=== PATIENT | female | born 1950 | race Caucasian/White ===

== ENCOUNTER 2018-11-20 23:27 | Observation (INO) ==
[2018-11-20] MEDS ORDERED: 0.9 % Sodium Chloride 1,000 ML IVC ONE (23:50)
[2018-11-20] MEDS ORDERED: methylPREDNISolone 125 MG/2 ML VIAL IVP ONE (23:50)
[2018-11-20] MEDS ORDERED: Ipratropium/Albuterol Neb 3 ML IH ONE (23:50)
[2018-11-21 00:32] LABS: Basophils % 0.4 %; Eosinophils # 0.1 K/mcL (0.0-0.6); Eosinophils % 1.4 %; Hematocrit 38.8 % (35.3-44.9); Immature Granulocytes % 0.3 % (0-4); Lymphocytes % 11.1 %; Mean Corpuscular HGB Conc 33.5 g/dL (31.6-35.5); Mean Corpuscular Hemoglobin 30.4 pg (28.0-33.3); Mean Corpuscular Volume 90.9 fL (83.0-100.0); Mean Platelet Volume 9.9 fL (9.4-12.4); Monocytes # 1.6 K/mcL (0.0-1.3); Neutrophils # 6.5 K/mcL (1.6-8.9); Platelet Count 248 K/mcL (140-400); Red Blood Count 4.27 M/mcL (3.82-4.97); Red Cell Distribution Width 11.3 % (11.5-14.5); Segmented Neutrophils % 69.8 %
[2018-11-21] MEDS ORDERED: Levofloxacin 750 MG/150 ML 750 MG/150 ML BAG IVPB ONE (00:37)
--- NOTE | 2018-11-21 00:40 | Emergency Department Note ---
Disposition Clinical Impression: Bronchitis, COPD exacerbation, Dyspnea Disposition: Admitted As Inpatient Condition: Good Referrals: Kayli Miller NEEDLE STRAIGHTENER [Primary Care Provider] - Forms: ED Satisfaction Letter Time of Disposition: 00:43 SOB HPI - General Chief Complaint: ED Upper Respiratory Infection Stated Complaint: Sinus drainage 10 days ago, dyspnea 3 days Time Seen by Provider: 11/20/18 23:31 Source: patient, EMS Mode of arrival: EMS Limitations: no limitations Nursing Notes Reviewed: Yes Vital Signs Reviewed: Yes - History of Present Illness Pt Subjective Complaint: shortness of breath, cough Onset (ago): day(s) (Several days) Context: recent illness (Started out about 10 days ago with sinus congestion. Still having a lot of sinus congestion with postnasal drainage and mucus when blowing her nose.) Severity: severe Consistency/Duration: constant, gradually worsening Improves with: oxygen, rest Worsens with: exertion Known history of: COPD Associated symptoms: Reports: cough, sputum production. Denies: fever Treatment prior to arrival: oxygen (Home oxygen) Cough present: Yes Cough Description: Productive Cough Frequency: Intermittent - Related Data Home Medications Medication Instructions Recorded Confirmed Albuterol Neb [AccuNeb] 0.63 mg IH PRN PRN 11/04/15 11/20/18 Aspirin 81 mg PO DAILY 11/04/15 11/20/18 Budesonide/Formoterol 160/4.5 2 puff IH BIDR 11/04/15 11/20/18 [Symbicort 160/4.5] Ipratropium/Albuterol Sulfate 4 gm IH Q6H 11/04/15 11/20/18 [Combivent Respimat Inhal [place]] Allergies Allergy/AdvReac Type Severity Reaction Status Date / Time Sulfa (Sulfonamide AdvReac Vomiting Verified 11/20/18 23:41 Antibiotics) All systems ED: reviewed and negative except as stated. Constitutional: Denies: fever, chills ENT ED: Reports: throat pain, congestion, other (Significant postnasal drainage). Denies: ear pain Cardiovascular: Reports: dyspnea on exertion. Denies: chest pain, palpitations Respiratory: Reports: cough, dyspnea, wheezes Gastrointestinal: Reports: nausea (She has had some nausea with the postnasal drainage). Denies: abdominal pain, vomiting, diarrhea Musculoskeletal: Denies: back pain Integumentary: Denies: rash Neurological: Denies: headache Past Medical History - Past Medical History Attestation: Yes The following information was validated with the patient. Source: patient, old records reviewed, obtained from family, nursing notes reviewed Medical history: Reports: COPD, diabetes, hypertension Surgical history: Reports: hip replacement Psychiatric history: Reports: no psych history - Social History Smoking Status: Former smoker Smokeless Tobacco Status: No Alcohol use: Reports: none Drug use: Reports: none Physical Exam - General Limitations: no limitations General appearance: alert, in no apparent distress - Head Head exam: atraumatic, normocephalic, normal inspection - Eye Eye exam: Present: normal appearance, PERRL, EOMI. Absent: scleral icterus, conjunctival injection - ENT ENT exam: normal exam, normal oropharynx, mucous membranes moist, TM's normal bilaterally, normal external ear exam - Neck Neck exam: Present: normal inspection, full ROM, trachea midline. Absent: lymphadenopathy - Chest Chest inspection: Present: normal inspection, symmetric chest wall rise. Absent: tenderness - Respiratory Respiratory exam: Present: respiratory distress (Tachypneic), wheezes (Scattered throughout), prolonged expiratory phase - Cardiovascular Cardiovascular exam: Present: normal rhythm, tachycardia, normal heart sounds - Abdominal Exam Abdominal exam: Present: soft, Non-Tender, normal bowel sounds - Extremities Exam Extremities exam: Present: normal inspection, full ROM. Absent: pedal edema - Back Exam Back exam: Present: normal inspection. Absent: tenderness - Neurological Exam Neurological exam: Present: alert, oriented X3 - Psychiatric Psychiatric exam: Present: normal affect, normal mood - Skin Skin exam: Present: warm, dry. Absent: rash Course Course Narrative: Patient presents complaining of shortness of breath and cough and wheezing. She started out with sinus infection and postnasal drainage. That has persisted with the shortness of breath came on about 2 days ago and has been progressively worsening. She is using her home oxygen without relief. She has an aerosol machine at home but she did not use it for this illness. She does not appear toxic although she is little bit tachypneic and has the wheezing. I think is a COPD exacerbation precipitated by lung infection. We will get a chest x-ray going and get her breathing treatments and steroids. Disposition will be based on diagnostic results and reevaluation. - Reevaluation(s) Reevaluation #1: Chest x-ray was clear. Patient feels better after the breathing treatments but she still tachypneic and heart rate is 125 and she still has an oxygen need. I think is best admitted to the hospital. I will talk to the hospitalist. Time: 00:42 - Consultations Consultation #1: Dr. Arteaga, hospitalist - I discussed case with the hospitalist. He accepted the patient for admission. Time: 01:39 Vital Signs Temperature 98 F 11/20/18 23:31 Pulse Rate 110 11/20/18 23:31 Respiratory Rate 24 11/20/18 23:31 Blood Pressure 164/64 11/20/18 23:31 O2 Sat by Pulse Oximetry 92 11/20/18 23:31 Temperature 98 F 11/20/18 23:31 Pulse Rate 117 11/21/18 00:30 Respiratory Rate 22 11/21/18 00:30 Blood Pressure 148/71 11/21/18 00:30 O2 Sat by Pulse Oximetry 95 11/21/18 00:30 Oxygen Delivery Oxygen Delivery Nasal Cannula Shortness of Breath/Dyspnea - Medical Records Medical records reviewed: Yes I reviewed the patient's medical records. - Lab Data Lab results reviewed: Yes I reviewed the patient's lab results. Result diagrams: 11/21/18 00:08 11/21/18 00:08 Lab Results 11/21/18 11/21/18 11/21/18 Range/Units 00:08 00:08 00:08 WBC 9.3 (4.3-11.1) K/mcL RBC 4.27 (3.82-4.97) M/mcL Hgb 13.0 (11.5-15.4) g/dL Hct 38.8 (35.3-44.9) % MCV 90.9 (83.0-100.0) fL MCH 30.4 (28.0-33.3) pg MCHC 33.5 (31.6-35.5) g/dL RDW 11.3 L (11.5-14.5) % Plt Count 248 (140-400) K/mcL MPV 9.9 (9.4-12.4) fL Immature Gran % 0.3 (0-4) % Seg Neutrophils % 69.8 % Lymphocytes % 11.1 % Monocytes % 17.0 % Eosinophils % 1.4 % Basophils % 0.4 % Neutrophils # 6.5 (1.6-8.9) K/mcL Lymphocytes # 1.0 (0.6-4.6) K/mcL Monocytes # 1.6 H (0.0-1.3) K/mcL Eosinophils # 0.1 (0.0-0.6) K/mcL Basophils # 0.0 (0.0-0.2) K/mcL Sodium 135 L (136-145) mEq/L Potassium 3.8 (3.5-5.1) mEq/L Chloride 94 L (98-107) mEq/L Carbon Dioxide 33 H (23-29) mEq/L BUN 11 (8-23) mg/dL Creatinine 0.40 L (0.60-1.20) mg/dL Est GFR ( Amer) > 60 (> 60) Est GFR (Non-Af Amer) > 60 (> 60) BUN/Creatinine Ratio 28 H (6-26) Glucose 149 H (70-105) mg/dL Calculated Osmolality 282 (280-300) Calcium 9.4 (8.6-10.3) mg/dL Troponin I < 0.03 (< 0.04) ng/mL B-Natriuretic Peptide 27 (Less than 100) pg/mL - Radiology Data Radiology results reviewed: Yes I reviewed the patient's radiology results.
[2018-11-21 00:58] LABS: Troponin I < 0.03 ng/mL (< 0.04)
[2018-11-21 01:01] LABS: BUN/Creatinine Ratio 28 (6-26); Blood Urea Nitrogen 11 mg/dL (8-23); Calcium 9.4 mg/dL (8.6-10.3); Carbon Dioxide 33 mEq/L (23-29); Chloride 94 mEq/L (98-107); Glucose 149 mg/dL (70-105); Osmolality,Calculated 282 (280-300); Potassium 3.8 mEq/L (3.5-5.1); Sodium 135 mEq/L (136-145); eGFR For Non-African Americans > 60 (> 60)
[2018-11-21] MEDS ORDERED: Naloxone 0.4 MG/ML INJ IVP PRN (02:32)
[2018-11-21] MEDS ORDERED: Levofloxacin 500 MG/100 ML 500 MG/100 ML BAG IVPB SCH (02:32)
[2018-11-21] MEDS ORDERED: 0.9 % Sodium Chloride 1,000 ML IVC SCH (02:32)
[2018-11-21] MEDS: Ipratropium/Albuterol Neb 3 ML IH SCH ×3 (03:25→11:43)
[2018-11-21] MEDS ORDERED: MethylPREDNISolone 40 MG/ML VIAL IVP SCH (08:00)
[2018-11-21] MEDS ORDERED: Aspirin 81 MG TAB.CHEW PO SCH (09:00)
[2018-11-21] MEDS ORDERED: Budesonide/Formoterol 160/4.5 1 PUFF INH IH SCH (10:00)
--- NOTE | 2018-11-21 11:38 | Internal Med History&Physical ---
Date of Encounter: 11/21/18 Time of Encounter: 11:10 Assessment and Plan (1) COPD (chronic obstructive pulmonary disease) Current visit: No Status: Chronic She was given Levaquin and Solu-Medrol in emergency room. She feels improved at present time. Qualifiers: COPD type: unspecified COPD Qualified Code(s): J44.9 - Chronic obstructive pulmonary disease, unspecified (2) Hypertension Current visit: No Status: Chronic She reports using lisinopril 10 mg daily at home. She denies chronic cough. Qualifiers: Hypertension type: essential hypertension Qualified Code(s): I10 - Essential (primary) hypertension Internal Medicine - H&P: HPI Chief complaint: Dyspnea Admitted From: Emergency Dept Plans for Post Hospital Care: Home History of present illness: Ms. Hernandez is a 68 year old female who came to emergency room stating she had dyspnea onset approximately 10 days earlier. She had seen her PCP approximately 5 days after onset. She reports chest x-ray and testing for influenza were negative. She was given steroids which she took for 2 doses and then stopped. She also reports there is some pressure sensation in her chest and upper back. Her dyspnea did not improve so she came to emergency room. She was evaluated in emergency room and admitted to [facility] floor for ongoing care needs. She states she feels improved present time but not quite back to her baseline. Her respiratory history significant for having smoked from age [age] never exceeding 1 pack per day. She has oxygen home which she uses at nighttime and as needed during the daytime. She reports PFTs 2007 showed COPD. Cardiovascular history is significant for hypertension. She denies MT heart failure angina DVT or pulmonary embolus. Past Med Surg Social Fam HX - Past Medical History Medical history: COPD, diabetes, GERD, hypertension Psychiatric history: no psych history - Past Surgical History Surgical History: hip replacement Additional surgical history: ORIF right hip - Social History Smoking Status: Former smoker Smokeless Tobacco Status: No Alcohol use: none Drug use: none - Family History Father Hx Family Cardiac Disorders: Yes Internal Medicine - H&P: Meds Albuterol Neb [AccuNeb] 0.63 mg IH PRN PRN 11/04/15 [History] Aspirin 81 mg PO DAILY 11/04/15 [History] Budesonide/Formoterol 160/4.5 [Symbicort 160/4.5] 2 puff IH BIDR 11/04/15 [History] Ipratropium/Albuterol Sulfate [Combivent Respimat Inhal [place]] 4 gm IH Q6H 11/04/15 [History] Lisinopril [Zestril] 10 mg PO DAILY 11/21/18 [History] Allergy/AdvReac Type Severity Reaction Status Date / Time Sulfa (Sulfonamide AdvReac Vomiting Verified 11/20/18 23:41 Antibiotics) All Systems PM: A 10-system review of systems was performed and is negative for pertinent findings except as documented above in the HPI. Review of systems: Gen.: She states her weight has been stable for the past year Cardiovascular: As per history of present illness Respiratory: As per history of present illness GI: She denies disorders of her liver gallbladder or exocrine pancreas : She denies hematuria dysuria or kidney stones Neurologic: She denies large distribution strokes or seizures. Endocrine: She was diagnosed with DM 2 approximately 2007. She states it is diet-controlled. Hemoglobin A1c was 6.1% on 08/30/2018. She has hyperlipidemia. She denies thyroid disease. Hematology/oncology: She denies blood disorders cancers or anemia. Psychiatric: She denies anxiety depression or other mental health issues. [place] skeletal: She had right hip fracture with pin repair 2014. She denies gout or other bone joint or muscle disorders. - Constitutional Vitals: Temp Pulse Resp BP Pulse Ox 98.0 F 102 18 143/69 95 11/21/18 08:00 11/21/18 08:00 11/21/18 08:16 11/21/18 08:00 11/21/18 09:48 Exam: Gen.: She is a well-developed well-nourished female sitting in bed who appears in no acute distress HEENT: Head is atraumatic and normocephalic. Eyes: EOMI. There is no scleral icterus. Mouth: Mucosa is moist. Neck: Supple and nontender. There is no thyromegaly or adenopathy noted. Heart: Regular without murmurs gallops or ectopics Lungs: No wheezes or crackles are heard. Abdomen: Soft and nontender. No masses or guarding are noted. Extremities: There is no cyanosis edema or clubbing noted. Dorsalis pedis and posterior tibial pulses are trace to 1+ palpable bilaterally. Neurologic: Mental status: She is talkative and a good historian. Cranial nerves: Smile is symmetric. Forehead wrinkles bilaterally. Tongue protrudes midline. EOMI. Motor: There is no pronator drift. Cerebellar: Finger to nose is intact bilaterally. Skin: Warm and dry Internal Med - H&P Results - Labs CBC & Chem 7: 11/21/18 00:08 11/21/18 00:08 Labs: Short CBC 11/21/18 Range/Units 00:08 WBC 9.3 (4.3-11.1) K/mcL Hgb 13.0 (11.5-15.4) g/dL Hct 38.8 (35.3-44.9) % Plt Count 248 (140-400) K/mcL Neutrophils # 6.5 (1.6-8.9) K/mcL BMP 11/21/18 00:08 Sodium 135 L Potassium 3.8 Chloride 94 L Carbon Dioxide 33 H BUN 11 Creatinine 0.40 L Glucose 149 H Calcium 9.4 Cardiac Enzymes 11/21/18 Range/Units 00:08 Troponin I < 0.03 (< 0.04) ng/mL - Impressions ITS Impressions Chest X-Ray 11/20/18 23:49 IMPRESSION: Negative portable chest x-ray. No evidence of acute cardiopulmonary process. D/ / González Clark MD / González Clark MD Interpreting Provider: González Clark MD
--- NOTE | 2018-11-21 11:45 | Discharge Summary ---
Date of Encounter: 11/21/18 Time of Encounter: 11:10 - Discharge Diagnosis (1) COPD (chronic obstructive pulmonary disease) Priority: Primary Status: Chronic Qualifiers: COPD type: unspecified COPD Qualified Code(s): J44.9 - Chronic obstructive pulmonary disease, unspecified (2) Hypertension Priority: Secondary Status: Chronic Qualifiers: Hypertension type: essential hypertension Qualified Code(s): I10 - Essential (primary) hypertension Hospital course: Ms. Hernandez is a 68 year old female who came to emergency room stating she had dyspnea onset approximately 10 days earlier. She had seen her PCP approximately 5 days after onset. She reports chest x-ray and testing for influenza were negative. She was given steroids which she took for 2 doses and then stopped. She also reports there is some pressure sensation in her chest and upper back. Her dyspnea did not improve so she came to emergency room. She was evaluated in emergency room and admitted to [facility] floor for ongoing care needs. Initial orders were written by the emergency room physician. I saw her on November 21 and performed a history physical and discharge. I noted BN peptide was normal in emergency room at . D-dimer was normal at 303 on 11/23/2018. When I saw her she felt improved and I felt she was stable for discharge home. I did not feel she needed additional antibiotics or steroids. She will follow with her PCP Kayli Miller CNP within 1 week. - Time Spent with Patient Total time spent providing and/or coordinating discharge services: - Discharge Medications Home Medications: Albuterol Neb [AccuNeb] 0.63 mg IH PRN PRN 11/04/15 [History] Aspirin 81 mg PO DAILY 11/04/15 [History] Budesonide/Formoterol 160/4.5 [Symbicort 160/4.5] 2 puff IH BIDR 11/04/15 [History] Ipratropium/Albuterol Sulfate [Combivent Respimat Inhal [place]] 4 gm IH Q6H 11/04/15 [History] Lisinopril [Zestril] 10 mg PO DAILY 11/21/18 [History] Allergies/Adverse Reactions: Allergy/AdvReac Type Severity Reaction Status Date / Time Sulfa (Sulfonamide AdvReac Vomiting Verified 11/20/18 23:41 Antibiotics) Date of admission: 11/21/18 01:47 Primary care physician: Kayli Miller - Constitutional Vitals: Temp Pulse Resp BP Pulse Ox 98.0 F 102 18 143/69 95 11/21/18 08:00 11/21/18 08:00 11/21/18 08:16 11/21/18 08:00 11/21/18 09:48 - Patient Status Disposition: Home, Self-Care Condition: Good - Discharge Instructions Follow Up With: Kayli Miller, LOGISTICS INTERN [Primary Care Provider] - 1 week - Diet and Activity Activity: resume usual activities as tolerated, wear oxygen at night Diet: advance to your usual diet
[2018-11-21 11:51] VITALS: BP 160/71
== END 2018-11-21 14:03 | disposition home or self-care (01) ==
LOC: EMEROOPIK 23:27 → INPPIK 23:27
PROVIDERS: ADMIT Internal Medicine; ATTEND Internal Medicine